=== PATIENT | male | born 1960 | race American Indian/Alaskan Native ===

== ENCOUNTER 2017-12-07 03:34 | Emergency (ER) | payer BC, OTHER ==
[2017-12-07] MEDS ORDERED: CATAPRES PO ONE (09:09)
--- NOTE | 2017-12-07 09:17 | Emergency Department Report ---
ED Recheck HPI - General Chief Complaint: Medical Clearance Stated Complaint: MEDICAL CLEARANCE Time Seen by Provider: 12/07/17 08:53 Source: patient Mode of arrival: Ambulatory Limitations: No Limitations - History of Present Illness Initial Comments: This is a 57-year-old male nontoxic, well nourished in appearance, no acute signs of distress presents to the ED for medication refill of Prozac. Patient that he has been out of his medication for about a month and has been having anxiety and depression. Patient denies any suicidal indications or homicidal indicaitons. Patient denies following up with a primary care doctor as he stated that he does not have transportation. The patient also stated that he is has been out of his HCTZ 25 mg for a month. Patient denies any chest pain, short of breath, fever, chills, nausea, vomiting, headache or stiff neck. Patient denies any numbness or tingling. Patient denies any drug allergies past medical history includes asthma, CVA, diabetes and hypertension. MD Complaint: medication refill request Returns Today for: request for prescription Symptoms Since Prior Visit: no new symptoms Associated Symptoms: none - Related Data Home Medications Medication Instructions Recorded Confirmed Last Taken Hydrochlorothiazide [HCTZ] 25 mg PO DAILY 09/27/14 10/02/14 10/02/14 Previous Rx's Medication Instructions Recorded Last Taken Type Aspirin [Aspirin BABY CHEW TAB] 81 mg PO DAILY #30 tab.chew 09/29/14 09/29/14 Rx Carvedilol [Coreg] 12.5 mg PO BID #60 tablet 09/29/14 10/02/14 Rx Insulin Aspart [NovoLOG Flexpen] 10 unit SQ AC 30 Days ml 09/29/14 Unknown Rx Insulin Detemir [Levemir Flextouch] 30 unit SQ DAILY 30 Days ml 09/29/14 Unknown Rx Losartan [Cozaar] 50 mg PO DAILY #30 tablet 09/29/14 10/02/14 Rx Potassium Chloride [K-Dur] 20 meq PO QDAY #30 tablet 09/29/14 Unknown Rx FLUoxetine [PROzac] 20 mg PO QDAY #15 capsule 12/07/17 Unknown Rx Hydrochlorothiazide [HCTZ] 25 mg PO QDAY #30 tablet 12/07/17 Unknown Rx Losartan [Cozaar] 50 mg PO QDAY #30 tablet 12/07/17 Unknown Rx Allergies Allergy/AdvReac Type Severity Reaction Status Date / Time No Known Allergies Allergy Unverified 09/27/14 14:42 ED Review of Systems ROS: Stated complaint: MEDICAL CLEARANCE Other details as noted in HPI Constitutional: denies: chills, fever Eyes: denies: eye pain, eye discharge, vision change ENT: denies: ear pain, throat pain Respiratory: denies: cough, shortness of breath, wheezing Cardiovascular: denies: chest pain, palpitations Endocrine: no symptoms reported Gastrointestinal: denies: abdominal pain, nausea, diarrhea Genitourinary: denies: urgency, dysuria Musculoskeletal: denies: back pain, joint swelling, arthralgia Skin: denies: rash, lesions Neurological: denies: headache, weakness, paresthesias Psychiatric: denies: anxiety, depression Hematological/Lymphatic: denies: easy bleeding, easy bruising ED Past Medical Hx - Past Medical History Previous Medical History?: Yes Hx Hypertension: Yes Hx CVA: Yes Hx Congestive Heart Failure: No Hx Diabetes: Yes Hx Asthma: Yes (mild) Hx COPD: No Additional medical history: bilateral knee surgery - Surgical History Past Surgical History?: No Additional Surgical History: Bilateral knee replacement. - Social History Smoking Status: Never Smoker Substance Use Type: None - Medications Home Medications: Home Medications Medication Instructions Recorded Confirmed Last Taken Type Hydrochlorothiazide [HCTZ] 25 mg PO DAILY 09/27/14 10/02/14 10/02/14 History Aspirin [Aspirin BABY CHEW TAB] 81 mg PO DAILY #30 tab.chew 09/29/14 10/02/14 Rx Carvedilol [Coreg] 12.5 mg PO BID #60 tablet 09/29/14 10/02/14 10/02/14 Rx Insulin Aspart [NovoLOG Flexpen] 10 unit SQ AC 30 Days ml 09/29/14 10/02/14 Unknown Rx Insulin Detemir [Levemir Flextouch] 30 unit SQ DAILY 30 Days ml 09/29/14 Unknown Rx Losartan [Cozaar] 50 mg PO DAILY #30 tablet 09/29/14 10/02/14 10/02/14 Rx Potassium Chloride [K-Dur] 20 meq PO QDAY #30 tablet 09/29/14 10/02/14 Unknown Rx FLUoxetine [PROzac] 20 mg PO QDAY #15 capsule 12/07/17 Unknown Rx Hydrochlorothiazide [HCTZ] 25 mg PO QDAY #30 tablet 12/07/17 Unknown Rx Losartan [Cozaar] 50 mg PO QDAY #30 tablet 12/07/17 Unknown Rx ED Physical Exam - General Limitations: No Limitations General appearance: alert, in no apparent distress - Head Head exam: Present: atraumatic, normocephalic - Eye Eye exam: Present: normal appearance Pupils: Present: normal accommodation - ENT ENT exam: Present: normal exam, mucous membranes moist - Neck Neck exam: Present: normal inspection, full ROM - Respiratory Respiratory exam: Present: normal lung sounds bilaterally. Absent: respiratory distress - Cardiovascular Cardiovascular Exam: Present: regular rate, normal rhythm, normal heart sounds. Absent: irregular rhythm, systolic murmur, diastolic murmur, rubs, gallop - GI/Abdominal GI/Abdominal exam: Present: soft, normal bowel sounds - Rectal Rectal exam: Present: deferred - Extremities Exam Extremities exam: Present: normal inspection, full ROM, normal capillary refill - Back Exam Back exam: Present: normal inspection, full ROM - Neurological Exam Neurological exam: Present: alert, oriented X3, normal gait - Psychiatric Psychiatric exam: Present: normal affect, normal mood. Absent: depressed, agitated, anxious, flat affect, manic, homicidal ideation, suicidal ideation - Skin Skin exam: Present: warm, dry, intact, normal color. Absent: rash ED Course Vital Signs 12/07/17 12/07/17 03:39 04:00 Temperature 98.2 F 98.2 F Pulse Rate 96 H 91 H Respiratory 18 Rate Blood Pressure 189/106 185/100 O2 Sat by Pulse 97 99 Oximetry - Reevaluation(s) Reevaluation #1: 12/07/17 09:12 Patient is speaking in full sentences with no signs of distress noted. ED Recheck MDM - Medical Decision Making 57-year-old male that presents with medication refill. Patient he takes Prozac 20 mg daily. Patient also he takes HCTZ and losartan but has not filled his medication for about a month. Patient did receive Catapres in the ED and I will prescribe a dose for Prozac for couple days until he is able to follow up with his primary care doctor. Patient also received HCTZ and losartan refills. Blood pressure decreased prior to discharge. Patient was referred to Follow- up with a primary care doctor in 3-5 days or if symptoms worsen and continue return to emergency room as soon as possible. At time of discharge, the patient does not seem toxic or ill in appearance. No acute signs of distress noted. Patient agrees to discharge treatment plan of care. No further questions noted by the patient. Critical care attestation.: If time is entered above; I have spent that time in minutes in the direct care of this critically ill patient, excluding procedure time. ED Disposition Clinical Impression: Medication refill Hypertension Qualifiers: Hypertension type: unspecified Qualified Code(s): I10 - Essential (primary) hypertension Disposition: TO HOME OR SELFCARE Is pt being admited?: No Does the pt Need Aspirin: No Condition: Stable Instructions: Hypertension (ED) Additional Instructions: Follow-up with a primary care doctor in 3-5 days or if symptoms worsen and continue return to emergency room as soon as possible. Prescriptions: FLUoxetine [PROzac] 20 mg PO QDAY #15 capsule Hydrochlorothiazide [HCTZ] 25 mg PO QDAY #30 tablet Losartan [Cozaar] 50 mg PO QDAY #30 tablet Referrals: JOSE PHILLIPS MD [Primary Care Provider] - 3-5 Days PRIMARY CARE, [Referring] - 3-5 Days DINO HOPKINS MD [Staff Physician] - 3-5 Days [facility] [Outside] - 3-5 Days [facility] [Outside] - 3-5 Days Forms: Work/School Release Form(ED)
[2017-12-07 10:11] VITALS: BP 161/96
== END 2017-12-07 10:41 | disposition home or self-care (01) ==
LOC: ED 03:34
DX: Z76.0 Encounter for issue of repeat prescription (principal); I10 Essential (primary) hypertension; E11.9 Type 2 diabetes mellitus without complications; J45.909 Unspecified asthma, uncomplicated
CPT/HCPCS: 99282

== ENCOUNTER 2017-12-21 07:41 | Outpatient (CLI) | payer BC, OTHER ==
[2017-12-21] MEDS ORDERED: PROVENTIL IH ONE (08:23)
== END 2017-12-21 07:42 | disposition home or self-care (01) ==
LOC: PF 07:41
PROVIDERS: ATTEND Internal Medicine
DX: Z02.71 Encounter for disability determination (principal); J45.909 Unspecified asthma, uncomplicated; I63.9 Cerebral infarction, unspecified; E11.9 Type 2 diabetes mellitus without complications; F32.9 Major depressive disorder, single episode, unspecified; I10 Essential (primary) hypertension; K46.9 Unspecified abdominal hernia without obstruction or gangrene; Z96.653 Presence of artificial knee joint, bilateral
CPT/HCPCS: 94060; 94640